=== PATIENT | male | born 1940 | race Caucasian/White ===

== ENCOUNTER → 2017-10-14 | Outpatient (CLI) | payer OTHER, MEDICARE ==
[~2017-10-14] MED LIST: BENICAR5 MG PO; CALCITRIOL0.25 MCG PO; CALCIUM 600 +1 EAC1 PO; HYDROCHLOROTHIA25 MG PO; OXYCODONE HCL10 MG PO; PRAVACHOL40 MG PO; XALATAN2.5 ML RIGHT EYE
== END | disposition home or self-care (01) ==
LOC: AMB 08:00
DX: Z53.9 Procedure and treatment not carried out, unspecified reason (principal)